=== PATIENT | male | born 1980 | race Caucasian/White ===

== ENCOUNTER 2018-09-14 21:07 | Inpatient (IN) | payer MEDICARE, OTHER ==
[~2018-09-14] VITALS: Ht 180.3 cm; Wt 73.0 kg
[~2018-09-14 21:07] MED LIST: DILAUDID4 MG PO; DOCQLACE PO; FENTANYL1 EAC4 TOP; MORPHINE; MORPHINE SULFAT30 M3 PO; NOVALOG SQ; OXYCODONE HCL30 MG PO; SOMA; VANATRIP50 MG PO; XANAX; Z.0.GABAPENTIN300 MG PO; Z.0.LORTAB 10-5001 E; Z.1.AMOXICILLIN500 M PO; ZOFRAN8 MG PO; [UNRECOGNIZED DRUG - OTHER]
--- OUTSIDE RECORDS SUMMARY | 2018-09-14 21:10 | XMS REPORT | Clinical Summary ---
Author Author Jaspreet Arndtist Organization [facility] Address Unknown Phone Unavailable Care Team Providers Care Learning And Development Consultant Name Role Phone Dorian Hernandez MD PCP Allergies Comments Active Allergy Reactions Severity Noted Date Iodinated Contrast- Oral 07/21/2016 And Iv Dye "causes an anger issue" Morphine Other (See 11/17/2016 Comments) Medications End Date Status Medication Sig Dispensed Refills Start Date Active oxyCODone (ROXICODONE) 30 Take 30 mg by 0 MG immediate release mouth every 4 tablet (four) hours as needed for moderate pain. Active gabapentin (NEURONTIN) Take 900 mg 0 300 mg capsule by mouth 4 (four) times a day. Active insulin asp prt-insulin Inject under 0 ASPART (NovoLOG 70/30) the skin 3 100 unit/mL (70-30) (three) times injection a day with meals. Active fentaNYL (DURAGESIC) [address] 1 patch 0 mcg/hr on the skin every third day. Active Problems Not on file Social History Date Tobacco Use Types Packs/Day Years Used Former Smoker Sex Assigned at Date Recorded Not on file Industry Job Start Date Occupation Not on file Not on file Not on file Travel End Travel History Travel Start No recent travel history available. Last Filed Vital Signs Not on file Plan of Treatment Health Maintenance Due Date Last Done Comments INFLUENZA VACCINE 12/17/2018 Results Not on fileafter 09/13/2017 Insurance Payer Benefit Subscriber ID Type Phone Address Plan / Group [facility] DUAL xxxxxxxxx HMO COMPLETE [facility] Advance Directives Patient has advance care planning documents on file. For more information, pleas e contact: Jaspreet Vallejo [phone] [facility] [address]
--- OUTSIDE RECORDS SUMMARY | 2018-09-14 21:10 | XMS REPORT ---
Author Author [facility] Address Unknown Phone Unavailable Care Team Providers Care Waiter/Waitress Dining Car Name Role Phone UNKNOWN, REFFERING PP Unavailable TAMIE, EUGENE Unavailable Unavailable Problems This patient has no known problems. Allergies, Adverse Reactions, Alerts This patient has no known allergies or adverse reactions. Medications This patient has no known medications. Encounters Start Date/Time End Date/Time Encounter Type Admission Type Attending Clinicians Care Facility Care Department Encounter ID 2016-12-18 09:06:00 Inpatient C [facility] MED [id number] 2016-11-19 04:26:04 2016-11-19 04:26:04 Emergency [facility] [id number] 2016-11-18 21:26:36 2016-11-18 21:26:36 [facility] [id number] Results Test Description Test Time Test Comments Text Results Atomic Results Result Comments Lipase 2016-11-15 22:34:00 Lipase (test code=LIP) 24 U/L 13-60 Comprehensive Metabolic [id number] 22:34:00* Test Item Value Reference Range Comments Sodium (test code=NA) 135 mmol/L 135-145 Potassium (test code=K) 4.5 mmol/L 3.5-5.1 Chloride (test code=CL) 98 mmol/L 98-105 Carbon Dioxide (test code=CO2) 21 mmol/L 22-29 Glucose (test code=GLU) 343 mg/dL 70-115 Blood Urea Nitrogen (test code=BUN) 23 mg/dL 6-20 Creatinine (test code=CREAT) 1.2 mg/dL 0.7-1.2 Calcium (test code=CA) 10.1 mg/dL 8.3-10.5 Prot Total (test code=TP) 8.3 g/dL 6.4-8.3 Albumin (test code=ALB) 5.1 g/dL 3.5-5.2 A/G Ratio (test code=AGRATIO) 1.6 Ratio Globulin (test code=GLOB) 3.2 2.9-3.1 Bili Total (test code=TBIL) 1.1 mg/dL 0.1-0.9 Alk Phos (test code=APHOS) 116 U/L 40-129 AST (test code=AST) 13 U/L 1-40 ALT (test code=ALT) 23 U/L 1-41 BUN/Creatinine Ratio (test code=BCRATIO) 19.2 Anion Gap (test code=AGAP) 16 mmol/L 7-16 Estimated GFR (test code=GFR) >60 mL/min/1.73m2 eGFR (estimated Glomerular Filtration Rate) is an estimated value,calculated from the patient's serum creatinine using the MDRD equation.It is NOT the patient's actual GFR. The eGFR provides a more clinicallyuseful measure of kidney disease than serum creatinine alone.This calculation takes sex and race into account, if the informationis provided. If the race is not provided, and the patient isAfrican-Brazilian, multiply by 1.212. If sex is not provided, and thepatient is female, multiply by 0.742. Results for patients <18 years ofage have not been validated by the MDRD study and should be interpretedwith caution.eGFR Result Interpretation:eGFR > or=60 is in the Normal RangeeGFR < 60 may mean kidney diseaseeGFR < 15 may mean kidney failureRanges recommended by the National Kidney Foundat ion,http://nkdep.nih.gov CBC with [id number] 22:17:00* Test Item Value Reference Range Comments WBC (test code=WBC) 6.8 K/cumm 4.4-10.5 RBC (test code=RBC) 5.06 M/cumm 4.10-5.70 Hemoglobin (test code=HGB) 16.1 gm/dL 13.4-17.4 Hematocrit (test code=HCT) 46.2 % 38.7-52.0 MCV (test code=MCV) 91.4 fL 80-100 MCH (test code=MCH) 31.8 pg 27.0-32.5 MCHC (test code=MCHC) 34.8 g/dL 32.0-37.5 RDW (test code=RDW) 14.3 % 11.5-14.5 Platelet Count (test code=PLTCT) 170 K/cumm 140-440 MPV (test code=MPV) 7.6 fL Diff Method (test code=DIFFM) Auto Neutrophil (test code=NEUT) 75.2 % 36-70 Lymphocyte (test code=LYMPH) 18.2 % 12-44 Monocyte (test code=MONO) 5.3 % 0-11 Eosinophil (test code=EOS) 0.7 % 0-7 Basophil (test code=BASO) 0.6 % 0-2 Neutro Abs (test code=ANEUT) 5.1 K/cumm 1.6-7.4 Lymph Abs (test code=ALYMPH) 1.2 K/cumm 0.5-4.6 [place] Abs (test code=AMONO) 0.4 K/cumm 0.0-1.2 Eos Abs (test code=AEOS) 0.05 K/cumm 0.00-0.74 Baso Abs (test code=ABASO) 0.0 K/cumm 0.00-0.21
[2018-09-14] MEDS ORDERED: ONDANSETRON HCL INJ 2MG/ML 2ML 2 MG/ML VIAL IV STA (22:41)
[2018-09-14] MEDS ORDERED: SODIUM CHLORIDE 0.9% 1000ML 1,000 ML IV ONE (22:45)
[2018-09-14 22:55] LABS: BASOPHILS % 0.6 % (0.0-1.0); EOSINOPHILS # (AUTO) 0.1 (0.0-0.4); EOSINOPHILS % 1.7 % (0.0-6.0); HEMATOCRIT 44.2 % (38.2-49.6); HEMOGLOBIN 16.4 g/dL (14.0-18.0); LYMPHOCYTES # (AUTO) 2.5 (1.0-3.2); LYMPHOCYTES % 38.6 % (18.0-39.1); MEAN CORPUSCULAR HEMOGLOBIN 32.2 pg (28-32); MEAN CORPUSCULAR HGB CONC 37.1 g/dL (31-35); MEAN CORPUSCULAR VOLUME 86.8 fL (81-99); MONOCYTES # (AUTO) 0.4 (0.2-0.8); MONOCYTES % 6.2 % (4.4-11.3); NEUTROPHILS # (AUTO) 3.4 (2.1-6.9); NEUTROPHILS % 52.4 % (38.7-80.0); PLATELET COUNT 192 x10e3/uL (140-360); RED BLOOD COUNT 5.09 x10e6/uL (4.3-5.7); RED CELL DISTRIBUTION WIDTH 13.1 % (11.7-14.4)
[2018-09-14 23:11] LABS: CLARITY,URINE CLEAR (CLEAR); COLOR,URINE YELLOW (YELLOW)
[2018-09-14 23:12] LABS: AMPHETAMINES SCREEN,URINE NEGATIVE (NEGATIVE); BACTERIA,URINE RARE /HPF; BENZODIAZEPINES SCREEN,URINE NEGATIVE (NEGATIVE); BILIRUBIN,URINE NEGATIVE (NEGATIVE); EPITHELIAL CELLS,URINE RARE /LPF; KETONES,URINE NEGATIVE (NEGATIVE); LEUKOCYTE ESTERASE ,URINE NEGATIVE (NEGATIVE); NITRITE,URINE NEGATIVE (NEGATIVE); PHENCYCLIDINE SCREEN,URINE NEGATIVE (NEGATIVE); PROTEIN,URINE DIPSTICK 2+ (NEGATIVE); URINE UROBILINOGEN 0.2 mg/dL (0.2 - 1); WBC,URINE (MAN) 0-5 /HPF (0-5)
[2018-09-14 23:46] LABS: ALBUMIN/GLOBULIN RATIO 1.1 (0.8-2.0); CALCIUM 10.1 mg/dL (8.4-10.2); CREATININE, SERUM 1.33 mg/dL (0.72-1.25)
[2018-09-15] MEDS ORDERED: HYDROMORPHONE 2MG/ML 2 MG/ML ML IV ONE
[2018-09-15] MEDS ORDERED: INSULIN REGULAR, HUMAN 100 UNIT/1 ML 3ML VIAL SQ ONE
--- NOTE | 2018-09-15 01:20 | Diagnostic Imaging Report ---
EXAMINATION: CHEST 2 VIEWS INDICATION: ^LEFT SIDE PAIN ^Y COMPARISON: None available. FINDINGS: PA and lateral views TUBES and LINES: None. LUNGS: Lungs are well inflated. There is no evidence of pneumonia or pulmonary edema. PLEURA: No pleural effusion or pneumothorax. HEART AND MEDIASTINUM: The cardiomediastinal silhouette is unremarkable. BONES AND SOFT TISSUES: No acute osseous lesion. Soft tissues are unremarkable. UPPER ABDOMEN: No free air under the diaphragm. IMPRESSION: No acute thoracic abnormality. Signed by: Dr. Kojo Oleary MD on 09/15/2018 1:17 AM
[2018-09-15] MEDS ORDERED: OXYCONTIN10 MG PO (01:30)
[2018-09-15] MEDS ORDERED: HUMULIN 70100 UNIT/1 SQ (01:30)
--- NOTE | 2018-09-15 02:08 | Diagnostic Imaging Report ---
EXAM: CT Abdomen and Pelvis WITHOUT contrast INDICATION: ^LEFT SIDE PAIN, VOMITING, H/O STAGE 4 LIVER CANCER NO TREAT ^[id number] ^0037 ^Y COMPARISON: None available. TECHNIQUE: Abdomen and pelvis were scanned utilizing a multidetector helical scanner from the lung base to the pubic symphysis without administration of IV contrast. Absence of intravenous contrast decreases sensitivity for detection of focal lesions and vascular pathology. Coronal and sagittal reformations were obtained. Routine protocol was performed. IV CONTRAST: None ORAL CONTRAST: Administered. COMPLICATIONS: None RADIATION DOSE: Total DLP: 391.68 mGy*cm Estimated effective dose: (DLP x 0.015 x size factor) mSv CTDIvol has been reviewed. It is below the limits set by the Radiation Protocol Committee (RPC). FINDINGS: LINES and TUBES: None. LOWER THORAX: Unremarkable HEPATOBILIARY: Evaluation of liver parenchyma is limited without intravenous contrast. Lobulated approximately 6.1 x 3.3 cm inferior right hepatic lobe hypodense mass (series 2, image 35). No biliary ductal dilation. GALLBLADDER: Surgically absent. SPLEEN: Splenomegaly measuring 16.5 cm. PANCREAS: No focal masses or ductal dilatation. ADRENALS: No adrenal nodules KIDNEYS/URETERS: No hydronephrosis. No contour deforming renal lesion. No stones. GI TRACT: No abnormal distention or evidence of bowel obstruction. Rectal wall thickening. Appendix is normal. PELVIC ORGANS/BLADDER: Unremarkable. LYMPH NODES: No lymphadenopathy. Nonspecific subcentimeter gastrohepatic lymph nodes. VESSELS: Unremarkable. PERITONEUM / RETROPERITONEUM: No free air or fluid. BONES: Right acetabular and pubic symphysis sclerotic foci, likely bone islands. L4-L5 fusion and straightening of lumbar lordosis. SOFT TISSUES: Unremarkable. IMPRESSION: 1. Limited study without intravenous contrast. 2. Lobulated approximately 6.1 cm inferior right hepatic lobe hypodense mass. This can be further characterized with nonurgent liver mass protocol MRI. 3. Diffuse rectal wall thickening, could represent proctitis in the appropriate clinical context. Other differential consideration is malignancy. 4. Splenomegaly. Signed by: Dr. Kojo Oleary MD on 09/15/2018 2:05 AM
--- NOTE | 2018-09-15 02:40 | NUR ---
to room perform vs. pt requesting pain medication. pt informed that next dose of pain medication due at 0310. pt request that er md be notified for extra dose of dilaudid. md informed. md states to continue pain medication as ordered.
--- OUTSIDE RECORDS SUMMARY | 2018-09-15 02:42 | XMS REPORT | Clinical Summary ---
Author Author Jaspreet Arndtist Organization [facility] Address Unknown Phone Unavailable Care Team Providers Care Turntable Engineer Name Role Phone Dorian Hernandez MD PCP [...] INFLUENZA VACCINE 12/17/2018 Results Not on fileafter 09/14/2017 Insurance Payer Benefit Subscriber ID Type Phone Address Plan / Group [facility] MEDICARE [facility] DUAL xxxxxxxxx HMO COMPLETE [facility] Advance Directives Patient has advance care planning documents on file. For more information, pleas e contact: Jaspreet Vallejo [phone] [facility] [place] [address]
[2018-09-15] MEDS: SODIUM CHLORIDE 0.9% 1000ML 1,000 ML IV SCH ×3 (02:45→12:45)
[2018-09-15] MEDS ORDERED: DEXTROSE 50% SYRINGE 50 ML IV PRN (02:45)
--- NOTE | 2018-09-15 02:45 | NUR ---
pt informed that md states to continue pain medication as ordered. pt noted agitated. charge to bedside. pt states that wants attending md to come to room. pt informed that md not in hospital at this time. pt states that attending md needs to be called for a pain management doctor to be placed on his case. pt states that wants to speak to aos. pt speaking rudely to staff. pt stating that "they wont give me my regular pain medication." pt informed that npo and unable to give oral meds. informed pt that will administer pain mediction as soon as possible. pt agrees to plan of care at this time. Addendum: 09/15/18 at 0327 by PEARL pt informed that md states to continue pain medication as ordered. pt noted agitated. charge to bedside. pt states that wants attending md to come to room. pt informed that md not in hospital at this time. pt states that attending md needs to be called for a pain management doctor to be placed on his case. pt states that wants to speak to aos. pt speaking rudely to staff. pt stating that "they wont give me my regular pain medication." pt informed that npo and unable to give oral meds. pt states that it is time for my pain medication "you gave it to me at like 1130." pt informed that only given nausea medication at that time and that pain medication was not ordered until p mn and administered at 0010. pt not disagreeing c administration time of pain medication. informed pt that will administer pain mediction as soon as possible. pt agrees to plan of care at this time.
[2018-09-15] MEDS: ONDANSETRON HCL INJ 2MG/ML 2ML 2 MG/ML VIAL IV PRN ×2 (03:16→07:20)
[2018-09-15] MEDS ORDERED: HYDROMORPHONE 2MG/ML 2 MG/ML ML ONE ×5 (03:20→16:40)
[2018-09-15] MEDS: HYDROMORPHONE 1MG/1ML INJ IV PRN ×5 (03:20→16:41)
--- NOTE | 2018-09-15 03:20 | NUR ---
pain medication administered per orders at this time. time of administration written on marker board for pt assurance.
--- NOTE | 2018-09-15 06:45 | NUR ---
PT STATES THAT PAIN LEVEL INCREASING TO 7/10. PT REFUSED PAIN MEDICATION AT THIS TIME. PT STATES THAT WANTS TO WAIT UNTIL ABLE TO TAKE ZOFRAN.
[2018-09-15] MEDS: INSULIN REGULAR, HUMAN 100 UNIT/1 ML 3ML VIAL SQ SCH ×2 (07:20→12:01)
[2018-09-15] MEDS ORDERED: INSULIN REGULAR, HUMAN 100 UNIT/1 ML 3ML VIAL SQ SCH (07:30)
--- NOTE | 2018-09-15 11:17 | NUR ---
Patient resting with no distress noted at this time.
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
--- NOTE | 2018-09-15 12:05 | NUR ---
Patient upset that he has not been transferred to a room at this time. Patient notified that treatment remains the same at this time. Charge nurse and lodging house keeper aware.
--- NOTE | 2018-09-15 12:10 | NUR ---
Patient continues to request a pain management physician to be consulted. Awaiting for attending physician, Dr. Benavidez, to see and assess patient at this time. Patient continues to recieve Dilaudid q3h IV as scheduled.
[2018-09-15 12:27] LABS: CHOL/HDL RATIO 4.6 (3.9-4.7)
--- NOTE | 2018-09-15 13:17 | NUR ---
Patient states pain is 8/10 while laying back with legs crossed and playing games on his phone. No distress noted.
[2018-09-15] MEDS ORDERED: ENOXAPARIN SOD INJ 40 MG/0.4 ML SYR SC SCH (17:00)
[2018-09-15] MEDS ORDERED: FAMOTIDINE 20 MG/2 ML VIAL IV SCH (17:00)
[2018-09-15] MEDS ORDERED: ULTRAM50 MG PO (17:08)
[2018-09-15] MEDS ORDERED: ZOFRAN4 MG PO (17:08)
[2018-09-15 17:25] VITALS: BP 134/96
--- NOTE | 2018-09-15 17:33 | NUR ---
Patient awaiting taxi at this time. supervisor computer operations notified patient has been discharged.
--- NOTE | 2018-09-16 07:44 | NUR ---
Discharge summary Principal dx; Abdominal pain related to Metastatic liver cancer Proctitis Secondary dx: elevated lipase due to liver disease Splenomegaly DM1 Former smoker PLAN IVF GI consultation hba1c/lipids insulin lovenox/pepcid Treated symptomatically; encouraged to see in 1-2 days; also needs to f/u with cancer specialist; Given pain meds and IVF; d/c home f/u pcp 1 week and pain specialist 1-2 days; F/U cancer specialist 3-5 days stable d/c>35mins Rafael Benavidez MD, PhD.
== END 2018-09-15 17:30 | disposition home or self-care (01) | DRG 436 ==
LOC: ER 21:07 → ERHOLD 09-15 02:39
PROVIDERS: ADMIT Internal Medicine; ATTEND Internal Medicine
DX: C22.7 Other specified carcinomas of liver (principal); C79.51 Secondary malignant neoplasm of bone; K62.89 Other specified diseases of anus and rectum; R10.12 Left upper quadrant pain; R16.1 Splenomegaly, not elsewhere classified; Z87.891 Personal history of nicotine dependence; E10.40 Type 1 diabetes mellitus with diabetic neuropathy, unspecified; Z79.4 Long term (current) use of insulin
CPT/HCPCS: 36415; 71046; 74176; 80053; 80061; 80307; 81001; 82150; 82948; 83036; 83690; 85025; 96374; 96376; 99284; J2405; J7030